=== PATIENT | male | born 1995 | race Caucasian/White ===

== ENCOUNTER 2017-03-11 17:42 | Emergency (ER) | payer BC ==
--- NOTE | ~2017-03-11 | CR172 ---
[facility] A Service of [facility] RADIOLOGY TEXT RESULTS PATIENT: PARISA FINNEY JR LOCATION: SED : [birth year] UNIT #: [id number] AGE: [address]: Len Davis MD SEX: M ORDER DR: [id number] [place] [id number] MR#: [id number] Acc #: [id number] NAME: PARISA FINNEY JR : 1995 SEX: M STUDY DATE/TIME: 03/11/2017 17:51 UNIT: SED ROOM: STUDY DESCRIPTION: CR Knee 3 Views Lt Attending Physician: Len Davis M.D. Ordering Physician: Len Davis M.D. Primary Care Physician: Chandrakant Castanon M.D. MEDICAL IMAGING REPORT This report is preliminary unless electronic signature is present. EXAM Left knee, 03/11/2017 HISTORY 21-year-old male with left knee pain, status post fall today. COMPARISON None. FINDINGS Three views of the left knee demonstrate no acute fracture or dislocation. No joint effusion. Incidental note of a well circumscribed 5-mm soft tissue calcification along the anteromedial aspect of the lower pole of the patella. Joint spaces are normally maintained. Soft tissues are unremarkable. IMPRESSION Unremarkable left knee. Dictated by... Ney Unger M.D. THIS IS AN ELECTRONICALLY VERIFIED REPORT Ney Unger M.D. at 03/12/2017 10:24 AM RUFINO/asad TD: 03/11/2017 18:55 JOB #: [id number] MEDICAL IMAGING REPORT Page 1 of 1
[~2017-03-11 17:42] MED LIST: ANAPROX DS550 M1 PO; CELEXA10 M1; CLARITIN10 M2 PO; FLEXERIL10 M1 PO; FLEXERIL10 MG PO; FLOMAX0.4 M1 PO; GUAIFENESIN200 M1 PO; IBUPROFEN800 MG PO; LORTAB 5/500 TA1 TA1 PO; NO MEDICATIONS; NORCO 7.5-3251 EACH PO; PERCOCET5/325 PO; VOLTAREN50 MG PO; ZITHROMAX PO
== END 2017-03-11 18:47 | disposition home or self-care (01) ==
LOC: SED 17:42
DX: S83.095A Other dislocation of left patella, initial encounter (principal); F32.9 Major depressive disorder, single episode, unspecified; X50.1XXA Overexertion from prolonged static or awkward postures, initial encounter; Y93.89 Activity, other specified; Y92.009 Unspecified place in unspecified non-institutional (private) residence as the place of occurrence of the external cause
CPT/HCPCS: 29530; 73562; 99283